=== PATIENT | female | born 1960 | race Two or more races ===

== ENCOUNTER 2020-06-27 19:53 | Emergency (ER) | payer OTHER ==
[~2020-06-27] VITALS: Ht 162.6 cm; Wt 68.0 kg
[2020-06-27 20:03] VITALS: BP 136/78
--- NOTE | 2020-06-27 20:03 | NUR ---
ED Nurse Note: pt walked into ED from home c/o nosebleed s/p septoplasty 8 days ago with gauze removal 2 days ago. pt notices mild bleeding yesterday and today noted moderate bleeding. Denies trauma to nose, denies PETERSEN, dizzyness, blurry vision, denies pain.
[2020-06-27] MEDS ORDERED: Oxymetazoline 0.05% Na Spray 30ml NASAL ONE (20:15)
--- NOTE | 2020-06-27 20:25 | Emergency Room Report ---
History of Present Illness General Chief Complaint: Nosebleed Source: Patient Present Illness HPI Disclaimer: Please note that this report is being documented using [employer] technology. This can lead to erroneous entry secondary to incorrect interpretation by the dictating instrument. HPI: 59-year-old female presenting for evaluation epistaxis. Septoplasty 1 week ago in [facility]. Splint was removed 2 days ago by her surgeon. Began to ooze blood but then had one episode of brisk bleeding earlier today. Bleeding is right-sided. Stopped it by applying pressure, ice and packing the nose with tissue. Denies lightheadedness, palpitations, syncope, near syncope, vomiting or other symptoms. Does not use anticoagulants. PMH: Reviewed PSH: Reviewed Allergies: Reviewed Social Hx: Reviewed Allergies: Coded Allergies: No Known Allergies (Unverified , 06/27/20) COVID-19 Screening Contact w/high risk pt: No Experienced COVID-19 symptoms?: No COVID-19 Testing performed RACE STARTER: No Review of Systems All Other Systems: negative except mentioned in HPI Physical Exam Vital Signs Date Time Temp Pulse Resp B/P (MAP) Pulse Ox O2 Delivery O2 Flow Rate FiO2 06/27/20 19:54 98.4 95 16 136/78 (97) 98 Room Air General: Awake and alert, no acute distress HEENT: NC/AT. EOMI. copious dried blood in the nares bilaterally. No active bleeding, no obvious culprit lesion. Dried blood in the retropharynx. Uvula midline. Normal phonation. No stridor. Resp: Normal work of breathing Skin: Intact. No abrasions, laceration or rash over the exposed skin MSK: Normal tone and bulk. Moving all extremities. No obvious deformity. Neuro: Awake and alert. Mentating appropriately Medical Decision Making Diagnostic Impression: Primary Impression: Epistaxis ER Course 59-year-old female with recent septoplasty presents for evaluation of epistaxis. Bleeding is now controlled. No active bleeding or culprit lesion identified on exam. Patient was given Afrin, nasal packing and water to the emergency department for 1.5 hours. No further bleeding. Will discharge with strict nose blowing precautions, continue Afrin, ice, compression as needed. She will follow up with her ENT surgeon in 2 days. Instructed to return with any return of bleeding or other acute symptoms. She understands and agrees with the treatment plan will be discharged home. Last Vital Signs Date Time Temp Pulse Resp B/P (MAP) Pulse Ox O2 Delivery O2 Flow Rate FiO2 06/27/20 19:54 98.4 95 16 136/78 (97) 98 Room Air Disposition: HOME, SELF-CARE Condition: Stable Trever Maciel MD Jun 27, 2020 20:25
[2020-06-27 21:30] VITALS: BP 124/73
--- NOTE | 2020-06-27 21:30 | NUR ---
ER DISCHARGE NOTE: Patient is cleared to be discharged per ERMD. Pt's bleeding stopped and states it's easier to breathe now. pt is aox4, on room air, with stable vital signs. pt was given dc paperwork with instructions to f/u with surgeon. Pt was able to verbalize understanding, pt id band removed. pt is able to ambulate with steady gait. pt took all belongings.
== END 2020-06-27 21:30 | disposition home or self-care (01) ==
LOC: EMR 20:15
DX: R04.0 Epistaxis (principal)
CPT/HCPCS: 99282